=== PATIENT | female | born 1990 | race Caucasian/White ===

== ENCOUNTER 2021-04-09 14:00 | Inpatient (IN) ==
[2021-04-09] MEDS ORDERED: OXYTOCIN 30 UNITS/500 ML BAG IV PRN ×2 (15:32→21:53)
[2021-04-09] MEDS ORDERED: miSOPROStoL 50 MCG TAB PO ONE (15:56)
[2021-04-09 16:09] LABS: Mean Corpuscular Hemoglobin 30.1 pg (25-34); Mean Corpuscular Hgb Conc 34.3 g/dL (32-36); Mean Corpuscular Volume 87.7 fL (80-100); Mean Platelet Volume 9.5 fL (7.4-10.4); Platelet Count 286 K/uL (130-400); RDW Coefficient of Variation 13.1 % (11.5-14.5); RDW Standard Deviation 42.2 fL (36.4-46.3); Red Blood Count 3.99 M/uL (4.2-5.4); White Blood Count 11.97 K/uL (4.8-10.8)
[2021-04-09] MEDS ORDERED: BUTORPHANOL TARTRATE 1 MG/ML VIAL IV PRN (18:10)
[2021-04-09] MEDS: LACTATED RINGER'S 1,000 ML IV PRN ×2 (18:16→20:12)
[2021-04-09] MEDS ORDERED: ePHEDrine sulfate 50 MG/ML AMP ONE (19:23)
[2021-04-09] MEDS ORDERED: fentaNYL 2MCG/ML ROPIVACAINE 1.25MG/ML 100 ML BAG EPI PRN (19:24)
[2021-04-09] MEDS ORDERED: ePHEDrine sulfate 50 MG/ML AMP IV PRN (19:24)
[2021-04-09] MEDS ORDERED: BUPIVACAINE 0.25% 30 ML VIAL ONE (19:24)
[2021-04-09] MEDS ORDERED: diphenhydrAMINE 50 MG/ML VIAL IV PRN (19:24)
[2021-04-09] MEDS ORDERED: NALOXONE HCL 1 MG in SODIUM CHLORIDE 0.9% 1000ML 1,000 ML IV PRN (19:24)
[2021-04-09] MEDS ORDERED: ONDANSETRON INJ 2 MG/ML 2 ML VIAL IV PRN (19:24)
[2021-04-09] MEDS ORDERED: fentaNYL 2MCG/ML ROPIVACAINE 1.25MG/ML 100 ML BAG EPI ONE (19:24)
[2021-04-09] MEDS ORDERED: fentaNYL citrate 100 MCG/2 ML VIAL ONE (19:24)
[2021-04-09] MEDS ORDERED: NALOXONE HCL 0.4 MG/1 ML VIAL/CARP IV PRN (19:24)
[2021-04-09] MEDS ORDERED: NALBUPHINE HCL INJ 10 MG/ML AMP IV PRN (19:24)
--- NOTE | 2021-04-09 19:25 | Anesthesiology Consultation ---
Date of Service April 09, 2021 Assessment & Plan (1) Encounter for pre-operative examination: Chart Review Chart Review: Patient NOT seen in Pre Admission Testing and Acceptable Risk for Labor Epidural Consults Requested none History Height/Weight Height: 5 ft 3 in Weight: 67.132 kg Allergies Allergy/AdvReac Type Severity Reaction Status Date / Time Sulfa (Sulfonamide Allergy Hives Verified 04/09/21 15:06 Antibiotics) Medications Home Medications Medication Instructions Recorded Confirmed Last Taken vits no.124-ferrous fum 800 tab PO DAILY 04/09/21 04/09/21 04/08/21 21:00 27 mg iron-folic acid 800 mcg tablet ( Vitamin) Active Medications Generic Name Dose Route Start Last Admin Trade Name Freq PRN Reason Stop Dose Admin Butorphanol Tartrate 1 mg 04/09/21 18:10 04/09/21 18:21 Butorphanol Tartrate 1 Mg/Ml Vial IV 05/09/21 18:09 1 mg Q1HWA PRN Administration Pain Lactated Ringer's 1,000 mls @ 125 mls/hr 04/09/21 15:32 04/09/21 19:20 Lr IV 04/11/21 15:31 999 mls/hr .Q8H PRN Infusion L&D Protocol Protocol Exercise / Class Metabolic Activity II 4-5 Yardwork/Stairs/Walk up hill Past Anesthesia History No Hx of Anesthesia Complications and No Family Hx of Anesthesia Complications Social History Smoking Status: Never smoker Do You Dip or Chew Tobacco: No Hx Alcohol Use: No Hx Substance Use: No Physical Exam Vital Signs Last Vital Signs Temp 36.4 C L 04/09/21 19:08 Pulse 108 H 04/09/21 20:00 Resp 18 04/09/21 19:08 BP 146/85 H 04/09/21 20:00 Pulse Ox 97 04/09/21 19:53 Testing Laboratory Results 04/09/21 15:57
--- NOTE | 2021-04-09 20:42 | Labor Progress Brief Note ---
Date of Service April 09, 2021 Assessment & Plan (1) PROM (premature rupture of membranes): Plan: Pt admitted for PRON at 13:00 hrs on 04/09/21 On arrival she was 1cm.post pt received Cytotec PO FHR; CAT1 Ctx 1-3mins Epidural analgesia placed VE; 10:100/+1 Anticipate VD Admission and Anticipated Discharge Date Admission Date: April 09, 2021 Results & Data ([facility]) Vital Signs (Past 12 Hours) Vital Signs Temp Pulse Resp BP Pulse Ox 04/09/21 20:35 87 98 04/09/21 20:33 97 H 121/59 L 04/09/21 20:30 98 H 109/58 L 98 04/09/21 20:28 102 H 111/56 L 04/09/21 20:26 102 H 102/57 L 04/09/21 20:25 89 128/58 L 99 04/09/21 20:22 81 93 04/09/21 20:20 75 119/64 95 04/09/21 20:18 82 123/66 04/09/21 20:16 82 121/65 04/09/21 20:15 72 96 04/09/21 20:14 85 123/72 04/09/21 20:13 86 104/56 L 04/09/21 20:10 84 125/58 L 98 04/09/21 20:08 88 134/60 04/09/21 20:06 77 128/60 04/09/21 20:05 89 98 04/09/21 20:04 92 H 128/57 L 04/09/21 20:02 82 119/60 04/09/21 20:00 112 H 146/85 H 98 04/09/21 19:53 121 H 97 04/09/21 19:48 111 H 93 04/09/21 19:43 98 H 95 04/09/21 19:38 104 H 96 04/09/21 19:08 36.4 C L 18 04/09/21 19:01 80 126/69 04/09/21 18:43 36.6 C 76 20 127/69 04/09/21 17:00 36.6 C 04/09/21 16:08 83 20 124/74 04/09/21 14:40 36.9 C 94 H 18 133/77 04/09/21 14:17 37.1 C 94 H 16 133/77
[2021-04-09] MEDS ORDERED: LIDOCAINE 1% LOCAL 20 ML VIAL ONE (21:31)
[2021-04-09] MEDS ORDERED: DIPHTHERIA/TETANUS/PERTUSSIS 0.5 ML SYR/VIAL IM ONE (21:53)
[2021-04-09] MEDS ORDERED: METHYLERGONOVINE MALEATE 0.2 MG/ML AMP IM ONE (21:53)
[2021-04-09] MEDS ORDERED: SUPERCREAM 0.870% 15 GM JAR EXT PRN (21:53)
[2021-04-09] MEDS ORDERED: BENZOCAINE 20% AER SPR 82.5 GM CAN EXT PRN (21:53)
[2021-04-09] MEDS ORDERED: miSOPROStoL 200 MCG TAB PR ONE (21:53)
[2021-04-09] MEDS ORDERED: ACETAMINOPHEN 325 MG TAB PO PRN (21:53)
[2021-04-09] MEDS ORDERED: HYDROCORTISONE ACETATE 25 MG SUPP PR PRN (21:53)
--- NOTE | 2021-04-09 22:03 | Anesthesia Procedure Note ---
Date of Service April 09, 2021 Anesthesia Post Epidural Note Vital Signs Vital Signs: Temp Pulse Resp BP Pulse Ox 36.4 C L 75 18 111/59 L 98 04/09/21 19:08 04/09/21 22:02 04/09/21 20:10 04/09/21 22:02 04/09/21 21:40 Notes Mental Status: alert / awake / arousable and participated in evaluation Patient Amnestic to Procedure: No Nausea / Vomiting: adequately controlled Pain: adequately controlled Airway Patency, RR, SpO2: stable & adequate BP & HR: stable & adequate Hydration State: stable & adequate Neuraxial Anesthesia: was administered and sensory block is resolving Anesthetic Complications: no major complications apparent and Pt Satisfied with anesthetic care Epidural: Removed without complications and With tip intact
--- NOTE | 2021-04-09 22:08 | Delivery Summary ---
DELIVERY NOTE: DATE OF ADMISSION: 04/09/2021. The patient delivered a live female in left occiput presentation. There was left hand present ation as well with two nuchal cords, which were easily reduced. was placed on mother's abdome n. Delayed cord clamp was performed. Cord blood was obtained. Placenta was spontaneously delivered . Inspection of the placenta shows placenta with accessory lobe. Three-vessel cord was noted. Inspection of the perineum shows a second-degree midline laceration, which was repaired in layers wit h 2-0 and 3-0 Vicryl. There was good hemostasis post-repair. Rectal exam post-repair showed good sp hincter tone. No sutures are palpated in the rectum. Estimated blood loss was 450 mL. Baby and mother are doing well in recovery. 's weight and Apg ars are in the pediatric record. Job ID: [id number]
[2021-04-10] MEDS: IBUPROFEN 600 MG TAB PO PRN ×4 (06:14→22:15)
[2021-04-10 06:40] LABS: Hematocrit (blood only) 32.1 % (37-47); Hemoglobin 10.9 g/dL (12.0-16.0); Mean Corpuscular Hemoglobin 29.8 pg (25-34); Mean Corpuscular Volume 87.7 fL (80-100); Mean Platelet Volume 9.4 fL (7.4-10.4); Platelet Count 256 K/uL (130-400); RDW Coefficient of Variation 13.2 % (11.5-14.5); RDW Standard Deviation 42.4 fL (36.4-46.3); Red Blood Count 3.66 M/uL (4.2-5.4); White Blood Count 16.95 K/uL (4.8-10.8)
[2021-04-10] MEDS: DOCUSATE SODIUM 100 MG CAP PO SCH ×2 (09:23→20:19)
[2021-04-10] MEDS: PRENATAL VITAMIN 1 TAB PO SCH (09:24)
--- NOTE | 2021-04-10 09:45 | Obstetrical Progress Note ---
Date of Service April 10, 2021 Subjective Ambulation: ambulating normally Voiding: no voiding problems Passing Gas:: Yes Diet Tolerance:: regular diet Lochia:: Small Feeding Type:: breast feeding Current Pain Level(1-10): 0 doing well Physical Exam Constitutional WD/WN, vitals as above comfortable abdomen soft and non-tender fundus firm below U no edema neg Enlda's tent d/c in AM Results & Data ([facility]) Vital Signs (Past 12 Hours) Vital Signs Temp Pulse Pulse Resp BP BP 04/10/21 04:30 37.1 C 96 H 18 124/79 04/10/21 00:45 37.2 C 89 18 120/74 04/09/21 23:56 85 115/58 L 04/09/21 23:52 85 113/60 04/09/21 23:50 18 04/09/21 23:42 78 115/59 L 04/09/21 23:32 91 H 118/62 04/09/21 23:22 82 123/61 04/09/21 23:20 18 04/09/21 23:12 85 114/55 L 04/09/21 23:02 86 113/60 04/09/21 22:53 90 112/59 L 04/09/21 22:50 18 04/09/21 22:42 89 129/59 L 04/09/21 22:36 86 124/58 L 04/09/21 22:35 18 04/09/21 22:32 81 127/60 04/09/21 22:22 90 131/72 04/09/21 22:20 18 04/09/21 22:15 83 123/57 L 04/09/21 22:05 18 04/09/21 22:02 75 111/59 L 04/09/21 21:52 90 118/56 L 04/09/21 21:50 36.5 C 18 04/09/21 21:49 93 H 120/66 Laboratory Results 04/09/21 04/10/21 15:57 06:31 WBC 11.97 H 16.95 H RBC 3.99 L 3.66 L Hgb 12.0 10.9 L Hct 35.0 L 32.1 L MCV 87.7 87.7 MCH 30.1 29.8 MCHC 34.3 34.0 RDW Std Deviation 42.2 42.4 RDW Coeff of Heidi 13.1 13.2 Plt Count 286 256 MPV 9.5 9.4
[2021-04-10] MEDS ORDERED: bisacodyL 5 MG TABEC PO SCH (20:00)
[2021-04-11] MEDS ORDERED: bisacodyL 10 MG SUPP PR PRN
[2021-04-11 06:51] LABS: Hematocrit (blood only) 32.1 % (37-47); Hemoglobin 10.5 g/dL (12.0-16.0)
[2021-04-11] MEDS: IBUPROFEN 600 MG TAB PO PRN ×2 (07:16→11:47)
[2021-04-11] MEDS: DOCUSATE SODIUM 100 MG CAP PO SCH (08:29)
[2021-04-11] MEDS: PRENATAL VITAMIN 1 TAB PO SCH (08:29)
--- NOTE | 2021-04-11 08:34 | Obstetrical Progress Note ---
Date of Service April 11, 2021 Subjective Ambulation: ambulating normally Voiding: no voiding problems Passing Gas:: Yes Diet Tolerance:: regular diet Lochia:: Small Feeding Type:: breast feeding Current Pain Level(1-10): 0 doing well Physical Exam Constitutional WD/WN, vitals as above stable for d/c Results & Data ([facility]) Vital Signs (Past 12 Hours) Vital Signs Temp Pulse Resp BP 04/10/21 23:30 36.6 C 71 18 112/76 Laboratory Results 04/09/21 04/09/21 04/10/21 14:50 15:57 06:31 WBC 11.97 H 16.95 H RBC 3.99 L 3.66 L Hgb 12.0 10.9 L Hct 35.0 L 32.1 L MCV 87.7 87.7 MCH 30.1 29.8 MCHC 34.3 34.0 RDW Std Deviation 42.2 42.4 RDW Coeff of Heidi 13.1 13.2 Plt Count 286 256 MPV 9.5 9.4 Amniotic Protein POS 04/11/21 06:20 WBC RBC Hgb 10.5 L Hct 32.1 L MCV MCH MCHC RDW Std Deviation RDW Coeff of Heidi Plt Count MPV Amniotic Protein
== END 2021-04-11 12:30 | disposition home or self-care (01) | DRG 807 ==
LOC: OPB 14:00 → 4S1 14:08 → 4S2 04-10 00:44